=== PATIENT | female | born 1955 | race Caucasian/White ===

== ENCOUNTER 2025-06-18 08:24 | Day surgery (SDC) | payer OTHER ==
[~2025-06-18 08:24] MED LIST: DILTIAZEM ER90 MG PO; HYDROCHLOROTH12.5 M2 PO; NORVASC5 MG PO; PAMELOR25 MG PO
[2025-06-18] MEDS ORDERED: PERCOCET 5-3251 EACH PO (11:47)
[2025-06-18] MEDS ORDERED: RECTICARE30 GM TOP (11:47)
[2025-06-18] MEDS ORDERED: METRONIDAZOLE/SODIUM CHLORIDE 500 MG/100 ML PIGGYBACK IV ONE (13:15)
[2025-06-18] MEDS ORDERED: CEFTRIAXONE SODIUM 2,000 MG VIAL IV ONE (13:15)
== END 2025-06-18 15:55 | disposition home or self-care (01) ==
LOC: CIR.AMB 08:24
PROVIDERS: ATTEND Surgery
DX: K62.0 Anal polyp (principal); K62.1 Rectal polyp; D12.9 Benign neoplasm of anus and anal canal